=== PATIENT | male | born 1950 | race Caucasian/White ===

== ENCOUNTER → 2016-08-27 | Outpatient (CLI) | payer OTHER ==
[~2016-08-27] MED LIST: CIPRO250 M1 PO; CIPROFLOXACIN500 M1 PO; COUMADIN 5 MG TA5 M1 PO; FLOMAX PO; JANUVIA100 MG PO; MULTIVITAMIN; PRILOSEC 20 MG20 MG PO; VENTOLIN INHALER INH
== END ==
LOC: HYPER 07:37
DX: E11.622 Type 2 diabetes mellitus with other skin ulcer (principal); I87.2 Venous insufficiency (chronic) (peripheral); L97.821 Non-pressure chronic ulcer of other part of left lower leg limited to breakdown of skin; R60.0 Localized edema; I70.249 Atherosclerosis of native arteries of left leg with ulceration of unspecified site; C44.729 Squamous cell carcinoma of skin of left lower limb, including hip; F17.200 Nicotine dependence, unspecified, uncomplicated; Z85.46 Personal history of malignant neoplasm of prostate

== ENCOUNTER 2016-08-28 07:55 | Inpatient (IN) | payer OTHER ==
[~2016-08-28] VITALS: Ht 172.7 cm; Wt 85.3 kg
--- NOTE | ~2016-08-28 | HC ---
[facility] [place] [address] CONSULTATION Name: KRISTIESHUBHAM Mustafa Room #: 310-P ADM IN M.R.#: [id number] Admission: 08/28/16 Attend Phys: Tutu Oliver MD Discharge: Date of : 50 Report #: [id number] THIS REPORT FOR: //name// CC: FAM unknown Tutu Oliver DATE OF SERVICE: 08/28/2016 REASON FOR CONSULTATION: Fluid overload. HISTORY OF PRESENT ILLNESS: This is a 65-year-old male patient who denies any prior history of cardiac issues. He was admitted through the Emergency Room after being seen in urgent care for increasing shortness of breath. The patient stated he has been having progressive symptoms over the last numerous months, but over the last several weeks has become more prominent. Of interest though, he states that he is able to lay down flat with 1 pillow on his side and breathe better than he does sitting on his recliner. He is not having any chest pain, pressure, tightness or heaviness. He reports himself to be an alcoholic, but had not drank for 2 weeks and he is a long time, greater than 1 to 1-1/2 packs a day smoker that he started cutting down 2 weeks ago because of progressive shortness of breath. The patient denies any orthopnea. He denies any fever, chills, night sweats, pressure tightness, heaviness or fullness. He was sent to the Emergency Room and had a proBNP of 9376, although we do not know his baseline. Troponins were negative in the Emergency Room. CTA failed to demonstrate acute pulmonary embolus but did show evidence of emphysematous changes. PAST MEDICAL HISTORY: Significant for: 1. Polysubstance dependency with alcohol and tobacco. 2. Hypertension. 3. Diabetes mellitus. 4. Dyslipidemia. 5. Chronic kidney disease without any specifically identified stage. ALLERGIES: No known drug allergies. PAST SURGICAL HISTORY: Significant for: 1. Tonsillectomy and adenoidectomy. 2. Oral surgery. 3. ____ repair. MEDICATIONS: At home are warfarin, Januvia, Prilosec and Flomax. ELECTROCARDIOGRAM: Demonstrates normal sinus rhythm with ectopic. Monitor demonstrates episodes of atrial fibrillation. Right bundle branch block, [facility] [address] [place] [address] CONSULTATION Name: SHUBHAM FLOWERS Room #: 310-P [facility] IN ..#: [id number] Admission: 08/28/16 Attend Phys: Tutu Oliver MD Discharge: Date of : 50 Report #: [id number]-T wave changes. LABORATORY DATA: Demonstrates a BUN and creatinine of 16 and 1.3. Potassium 3.6. H and H is 17.3 and 52.0 with a platelet count of 239,000. RADIOLOGIC: Demonstrates a right lung infiltrate concerning for pneumonia. REVIEW OF SYSTEMS: Except for symptoms previously mentioned and those commensurate with comorbid state, the 10-point review of systems is negative. PHYSICAL EXAMINATION: GENERAL: Well-developed, well-nourished male, resting comfortably in no distress. VITAL SIGNS: Noted and reviewed in the chart. HEENT: Normocephalic, atraumatic. Pupils are equal, round, reactive to light and accommodation. Extraocular muscles are intact. Sclerae and conjunctivae are anicteric. NECK: JVD is normal. Carotid upstrokes are bilaterally symmetrical. No bruits are heard. No thyromegaly. No lymphadenopathy. LUNGS: Clear to auscultation. No wheezes, rhonchi or crackles. No CVA tenderness. Lungs demonstrate some decreased tidal volume, but no overt crackles are noted. CARDIAC: Demonstrates a regular rhythm with occasional ectopics, first and second heart sounds are preserved though. No ventricular or atrial gallops, no rubs noted. No murmurs. No lifts or heaves, PMI normal. ABDOMEN: Soft, nontender, nondistended. Normal bowel sounds. EXTREMITIES: Without cyanosis, clubbing or edema. Distal pulses are intact. DTR symmetrical. NEUROLOGIC: Cranial nerves 2-12 are grossly normal and symmetrical. PSYCHIATRIC: Alert, oriented with normal affect. SKIN: Warm and dry. IMPRESSION: 1. Dyspnea with respiratory failure, hypoxemia. His story is just not consistent with progressive congestive heart failure. Yes, he is total body fluid up, but I wonder if that has to do with other factors also. He was given diuretics and I will see how he diuresis with this. If he diuresis and his breathing improves, then clearly fluid overload is the cause. Elevated BNP may be secondary to his renal disease, elevated pulmonary pressures that are likely present with his emphysematous changes, etc. We will monitor for now. 2. Tachycardia, may be atrial fibrillation with a rapid rate secondary to above. We will monitor it more closely on an event monitor. We will get a 2D echo Doppler to rule out any structural abnormalities. 3. Hypertension - seems to be doing fairly well at home. I am going to have him check it here, so we can determine exactly what he runs and what we need to do [facility] [address] [place] [address] CONSULTATION Name: SHUBHAM FLOWERS Room #: 310-P ADM IN M.R.#: [id number] Admission: 08/28/16 Attend Phys: Tutu Oliver MD Discharge: Date of : 50 Report #: [id number] as an outpatient. 4. <ELECTRONICALLY SIGNED> By: Jayme Foster MD 08/29/16 2219 1814 11 Jayme Foster MD /nt
--- NOTE | ~2016-08-28 | EKG ---
[place] [address] [facility] [place] [address] ELECTROCARDIOGRAM REPORT Name: SHUBHAM FLOWERS Room #: 310-P ADM IN M.R.#: [id number] Admission: 08/28/16 Attend Phys: Tutu Oliver MD Discharge: Date of : 50 Report #: [id number] THIS REPORT FOR: //name// [facility] ED Test Date: 2016-08-28 Test Time: 08:20:20 Pat Name: SHUBHAM FLOWERS Department: Room: 310 Gender: M Instrumental Music Teacher: ovidio : 1950 Requested By: Bruce Greenfield Order Number: [id number] MD: Natalio Lopez Measurements Intervals Belle Rate: 121 P: 146 WA: 165 QRS: 146 QRSD: 130 T: -14 QT: 360 QTc: 511 Interpretive Statements Sinus tachycardia with frequent APC's Right bundle branch block Abnormal lateral Q waves Compared to ECG 08/02/2010 07:42:25 atrial premature complexes are now present Low-voltage in the limb leads Electronically Signed On 08-29-2016 7:10:14 CDT by Natalio Lopez [email or web address] <ELECTRONICALLY SIGNED> By: Natalio Lopez MD, [facility] 08/29/16 0710 9 9 Natalio Lopez MD, [facility] /EPI
--- NOTE | ~2016-08-28 | HC ---
[facility] [place] [address] CONSULTATION Name: SHUBHAM FLOWERS Room #: 310-P ADM IN M.R.#: [id number] Admission: 08/28/16 Attend Phys: Tutu Oliver MD Discharge: Date of : 50 Report #: [id number] THIS REPORT FOR: //name// CC: FAM unknown Tutu Oliver DATE OF SERVICE: 08/29/2016 HISTORY OF PRESENT ILLNESS: This is a 65-year-old male patient who presented to the emergency department from urgent care for worsening shortness of breath. He was noted to have ulceration on his left lower extremity as well as a small area of ulceration or possible traumatic wound to the right lower quadrant of abdomen as seen with regard to ongoing wound care. PAST MEDICAL HISTORY: Positive for history of respiratory failure with hypoxia, history of diabetes, hypertension, hypercholesterolemia, acute renal failure, history of tobacco abuse. CURRENT MEDICATIONS: Insulin, Lasix, vancomycin, enoxaparin, methylprednisolone, pantoprazole, carvedilol, ipratropium, albuterol, p.r.n. sublingual nitroglycerin. ALLERGIES: None. PAST MEDICAL HISTORY: Congestive heart failure. SOCIAL HISTORY: Positive for tobacco abuse and some history of alcohol use. FAMILY HISTORY: Noncontributory. REVIEW OF SYSTEMS: CONSTITUTIONAL: No fever, chills, weight loss. NEUROLOGICAL: The patient has focal weakness. ENT: The patient has . CARDIOVASCULAR: The patient denies chest pain or palpitations at rest. PULMONARY: The patient does have minor shortness of breath with exertion. ORTHOPEDIC: The patient complains of some mild swelling and discomfort to his lower extremities. Other systems are negative at this time. PHYSICAL EXAMINATION: VITAL SIGNS: At this time include temperature 97.6, pulse 85, respiration of 24, blood pressure 120/82. GENERAL: This is a chronically ill-appearing male. The patient appears in minimal distress. HEENT: Normocephalic. LUNGS: Diminished. [address] [address] CONSULTATION Name: SHUBHAM FLOWERS Room #: 310-P [facility] IN ..#: [id number] Admission: 08/28/16 Attend Phys: Tutu Oliver MD Discharge: Date of : 50 Report #: [id number] HEART: Regular rhythm. ABDOMEN: Soft, slightly distended. EXTREMITIES: There is a small ulceration covered with either crust or very small eschar in the right lower quadrant, it is not infected or inflamed. There is no separation or tunneling or undermining noted at this time. Lower extremities demonstrate some edema present. There is an ulceration on the left lower pretibial region with some exudate with equal mixture of exudate and granulation tissue. It does not appear overtly infected. IMPRESSION: 1. Ulceration to the left lower extremity, possibly traumatic in origin, complicated by lower extremity edema and/or venous insufficiency. 2. Congestive heart failure. 3. History of alcohol and tobacco use. RECOMMENDATION: At this point in time, we will recommend topical Maxorb AG with compressive consumer loan specialist to help control edema. I think the area on his right lower quadrant of his abdominal wall can be left open to air and I suspect that the crust and/or eschar will flake away in time. No debridement required at this time. I do appreciate being asked to see the patient in consultation. <ELECTRONICALLY SIGNED> By: Wilian Kim MD 08/30/16 0920 1601 [id number] Wilian Kim MD /nt
--- NOTE | ~2016-08-28 | 2DMMODE ---
[facility] [address] [place] [address] 2 D/M-MODE ECHOCARDIOGRAM Name: SHUBHAM FLOWERS Room #: 310-P ADM IN M.R.#: [id number] Admission: 08/28/16 Attend Phys: Ramsey Thomas Discharge: Date of : 50 Date of Service: 08/28/16 1624 Report #: [id number] THIS REPORT FOR: //name// APPROVED REPORT Study performed: 08/28/2016 12:43:49 EXAM: Comprehensive 2D, Doppler, and color-flow Echocardiogram Patient Location: Bedside Room #: 310 Status: routine Other Information Study Quality: Fair Indications Congestive Heart Failure Dyspnea Hx HPN, Renal Failure 2D Dimensions RVDd: 42.71 mm LVEF(%): 49.72 (>50%) IVSd: 9.19 (7-11mm) LVOT Diam: 26.43 (18-24mm) LVDd: 45.63 mm PWd: 9.24 (7-11mm) Ascending Ao: 31.49 (22-36mm) LVDs: 34.18 (25-40mm) Aortic Root: 36.01 mm Cash's LVEF: 49.72 % Volumes Left Atrial Volume (Systole) Single Plane 4CH: 72.14 mL LA ESV Index: 72.00 mL/m2 Aortic Valve AoV Peak Shawn.: 0.92 m/s AO Peak Gr.: 3.39 mmHg LVOT Max P.36 mmHg LVOT Max V: 0.77 m/s LINDA Vmax: 4.58 cm2 Mitral Valve MV E Max Shawn.: 0.95 m/s IVRT: 73.82 ms Pulmonary Valve [facility] [address] [address] 2 D/M-MODE ECHOCARDIOGRAM Name: SHUBHAM FLOWERS Room #: 310-P [facility] IN [facility].#: [id number] Admission: 08/28/16 Attend Phys: Ramsey Thomas Discharge: Date of : 50 Date of Service: 08/28/16 1624 Report #: [id number] PV Peak Shawn.: 0.78 m/s PV Peak Gr.: 2.42 mmHg Tricuspid Valve TR Peak Shawn.: 3.69 m/s RAP Estimate: 5.00 mmHg TR Peak Gr.: 44.00 mmHg RVSP: 49.00 mmHg Left Ventricle The left ventricle is normal size. There is normal LV segmental wall motion. There is normal left ventricular wall thickness. The left ventricular systolic function is normal. The left ventricular ejection fraction is within the normal range. LVEF is 50%. This study is not technically sufficient to allow evaluation of the LV diastolic function. Right Ventricle The right ventricle is normal size. Right ventricle is hypokinetic. Atria Left atrium is dilated. The atrial septum is aneurysmal. Right atrium is dilated. Aortic Valve Aortic valve leaflets are mildly thickened. Trace aortic regurgitation. There is no aortic valvular stenosis. Mitral Valve The mitral valve is normal in structure. Trace mitral regurgitation. No evidence of mitral valve stenosis. Tricuspid Valve The tricuspid valve is normal in structure. Mild to moderate tricuspid regurgitation. Pulmonic Valve The pulmonary valve is normal in structure. There is no pulmonic valvular regurgitation. Great Vessels The aortic root is normal in size. The ascending aorta is normal in size. IVC is normal in size and collapses >50% with inspiration. Pericardium There is no pericardial effusion. [facility] [address] [place] [address] 2 D/M-MODE ECHOCARDIOGRAM Name: SHUBHAM FLOWERS Room #: 310-P [facility] IN ..#: [id number] Admission: 08/28/16 Attend Phys: Ramsey Thomas Discharge: Date of : 50 Date of Service: 08/28/16 1624 Report #: [id number] <Conclusion> The left ventricle is normal size. LVEF is 50%. Left atrium is dilated. The atrial septum is aneurysmal. Right atrium is dilated. Aortic valve leaflets are mildly thickened. Trace aortic regurgitation. The mitral valve is normal in structure. Trace mitral regurgitation. The tricuspid valve is normal in structure. Mild to moderate tricuspid regurgitation. The pulmonary valve is normal in structure. <ELECTRONICALLY SIGNED> By: Jayme Foster MD 08/28/16 1624 1624 162 Jayme Foster MD /INF
[2016-08-28 07:57] VITALS: BP 138/94
[2016-08-28 08:22] LABS: ABSOLUTE NEUTROPHILS 5.6 thou/uL (1.4-8.2); BASOPHILS 0.6 % (0.0-2.0); EOSINOPHILS 0.1 % (0.0-3.0); HEMOGLOBIN 17.3 gm/dL (14.0-18.0); LYMPHOCYTES 14.3 % (24.0-44.0); MCH 31.4 pg (26.0-34.0); MCHC 33.3 g/dL (28.0-37.0); MCV 94.5 fL (80.0-100.0); MONOCYTES 6.9 % (1.0-8.0); PLATELET COUNT 239 thou/uL (150-400); POLYS 78.1 % (36.0-66.0); RBC 5.51 mil/uL (4.50-6.00); RDW 16.4 % (10.5-14.5); WBC 7.2 thou/uL (4.0-11.0)
[2016-08-28 08:24] LABS: MANUAL DIFF NO
[2016-08-28 08:31] LABS: CALCIUM 9.2 mg/dL (8.5-10.1); CREATININE 1.3 mg/dL (0.7-1.3); POTASSIUM 3.6 mmol/L (3.5-5.1)
[2016-08-28 08:43] LABS: TROPONIN-I 0.04 ng/mL (<0.04-0.07)
[2016-08-28 11:30] VITALS: BP 130/86
[2016-08-28 11:38] LABS: INR 1.1; PROTIME 11.6 Seconds (9.3-11.4)
[2016-08-28 12:34] VITALS: BP 128/76
[2016-08-28 12:50] LABS: FOLIC ACID 11.2 ng/mL (8.6-58.9); TSH 3.362 uIU/mL (0.358-3.740)
[2016-08-28 17:20] VITALS: BP 103/72
[2016-08-28 19:30] VITALS: BP 86/59
[2016-08-29 03:00] VITALS: BP 102/66
[2016-08-29 06:40] LABS: HEMATOCRIT 47.7 % (42.0-52.0); HEMOGLOBIN 15.4 gm/dL (14.0-18.0); MCH 30.9 pg (26.0-34.0); MCHC 32.3 g/dL (28.0-37.0); MCV 95.8 fL (80.0-100.0); RBC 4.98 mil/uL (4.50-6.00); RDW 16.6 % (10.5-14.5); WBC 5.6 thou/uL (4.0-11.0)
[2016-08-29 07:04] LABS: ALBUMIN 2.3 g/dL (3.4-5.0); CALCIUM 7.9 mg/dL (8.5-10.1); CREATININE 1.5 mg/dL (0.7-1.3); POTASSIUM 4.8 mmol/L (3.5-5.1); TC:HDL 2.9 Ratio (Not establshd); TOTAL BILIRUBIN 0.5 mg/dL (<0.1-1.0); TOTAL PROTEIN 6.1 g/dL (6.4-8.2)
[2016-08-29 08:10] VITALS: BP 103/69
[2016-08-29 12:37] VITALS: BP 120/82
[2016-08-29 16:04] VITALS: BP 105/71
[2016-08-29 20:00] VITALS: BP 99/70
[2016-08-30 03:18] LABS: GLYCOHEMOGLOBIN (HGB A1C) 8.7 % (4.8-5.6)
[2016-08-30 04:00] VITALS: BP 99/69
[2016-08-30 04:13] LABS: ABSOLUTE NEUTROPHILS 8.6 thou/uL (1.4-8.2); BASOPHILS 0.6 % (0.0-2.0); HEMOGLOBIN 15.5 gm/dL (14.0-18.0); LYMPHOCYTES 8.4 % (24.0-44.0); MCH 31.3 pg (26.0-34.0); MCHC 33.1 g/dL (28.0-37.0); MCV 94.7 fL (80.0-100.0); MONOCYTES 3.3 % (1.0-8.0); PLATELET COUNT 262 thou/uL (150-400); POLYS 87.7 % (36.0-66.0); RBC 4.96 mil/uL (4.50-6.00); RDW 16.2 % (10.5-14.5); WBC 9.8 thou/uL (4.0-11.0)
[2016-08-30 04:20] LABS: CALCIUM 7.8 mg/dL (8.5-10.1); CREATININE 1.8 mg/dL (0.7-1.3); MAGNESIUM 1.7 mg/dL (1.8-2.4); POTASSIUM 5.1 mmol/L (3.5-5.1)
[2016-08-30 04:43] LABS: MANUAL DIFF NO
[2016-08-30 08:21] VITALS: BP 114/71
[2016-08-30] MEDS ORDERED: PREDNISONE 10 M10 MG PO (11:26)
[2016-08-30] MEDS ORDERED: LEVAQUIN 500 M500 M2 PO (11:26)
[2016-08-30] MEDS ORDERED: DUONEB 2.5-0.5 M3 ML INH (11:26)
[2016-08-30] MEDS ORDERED: COREG3.125 MG PO (11:26)
[2016-08-30] MEDS ORDERED: GLIPIZIDE XL2.5 MG PO (11:26)
[2016-08-30] MEDS ORDERED: VIBRAMYCIN 100100 M2 PO (11:26)
[2016-08-30 16:21] VITALS: BP 104/73
[2016-08-30 19:15] VITALS: BP 126/78
[2016-08-31 03:53] LABS: CALCIUM 7.3 mg/dL (8.5-10.1); CREATININE 1.6 mg/dL (0.7-1.3); POTASSIUM 4.8 mmol/L (3.5-5.1)
[2016-08-31 04:09] VITALS: BP 125/89
[2016-08-31 07:49] VITALS: BP 143/91
[2016-08-31 14:16] VITALS: BP 143/91
[2016-08-31 14:45] VITALS: BP 143/91
== END 2016-08-31 15:30 | disposition home or self-care (01) | DRG 177 ==
LOC: ER 07:55 → EROBS 10:41 → 3N 10:41
PROVIDERS: Emergency Medicine; Internal Medicine; Nurse Practitioner
DX: J69.0 Pneumonitis due to inhalation of food and vomit (principal); J96.01 Acute respiratory failure with hypoxia; F19.20 Other psychoactive substance dependence, uncomplicated; J44.1 Chronic obstructive pulmonary disease with (acute) exacerbation; L97.929 Non-pressure chronic ulcer of unspecified part of left lower leg with unspecified severity; L03.90 Cellulitis, unspecified; J44.0 Chronic obstructive pulmonary disease with (acute) lower respiratory infection; I13.0 Hypertensive heart and chronic kidney disease with heart failure and stage 1 through stage 4 chronic kidney disease, or unspecified chronic kidney disease; E78.5 Hyperlipidemia, unspecified; R00.0 Tachycardia, unspecified; I48.91 Unspecified atrial fibrillation; E78.00 Pure hypercholesterolemia, unspecified; F17.210 Nicotine dependence, cigarettes, uncomplicated; F10.21 Alcohol dependence, in remission; E11.51 Type 2 diabetes mellitus with diabetic peripheral angiopathy without gangrene; I87.8 Other specified disorders of veins; N28.9 Disorder of kidney and ureter, unspecified; E11.22 Type 2 diabetes mellitus with diabetic chronic kidney disease; N18.9 Chronic kidney disease, unspecified; I50.9 Heart failure, unspecified
CPT/HCPCS: 10096

== ENCOUNTER → 2016-09-05 | Outpatient (CLI) | payer OTHER ==
[~2016-09-05] MED LIST changes: +COREG3.125 MG PO; +DUONEB 2.5-0.5 M3 ML INH; +GLIPIZIDE XL2.5 MG PO; +LEVAQUIN 500 M500 M2 PO; +PREDNISONE 10 M10 MG PO; +VIBRAMYCIN 100100 M2 PO
== END ==
LOC: HYPER 07:13
DX: E11.622 Type 2 diabetes mellitus with other skin ulcer (principal); I87.2 Venous insufficiency (chronic) (peripheral); L97.821 Non-pressure chronic ulcer of other part of left lower leg limited to breakdown of skin; R60.0 Localized edema; I70.248 Atherosclerosis of native arteries of left leg with ulceration of other part of lower leg; C44.729 Squamous cell carcinoma of skin of left lower limb, including hip; F17.200 Nicotine dependence, unspecified, uncomplicated; F12.90 Cannabis use, unspecified, uncomplicated; Z85.46 Personal history of malignant neoplasm of prostate

== ENCOUNTER → 2016-09-17 | Outpatient (CLI) | payer OTHER | LOC: HYPER 07:05 | DX: E11.622 Type 2 diabetes mellitus with other skin ulcer (principal); L97.821 Non-pressure chronic ulcer of other part of left lower leg limited to breakdown of skin; I70.248 Atherosclerosis of native arteries of left leg with ulceration of other part of lower leg; I87.2 Venous insufficiency (chronic) (peripheral); Z85.828 Personal history of other malignant neoplasm of skin; Z85.46 Personal history of malignant neoplasm of prostate; F17.200 Nicotine dependence, unspecified, uncomplicated ==

== ENCOUNTER → 2016-09-19 | Outpatient (CLI) | payer OTHER | LOC: RAD 14:56 | DX: R06.00 Dyspnea, unspecified (principal); R06.02 Shortness of breath ==

== ENCOUNTER → 2016-09-27 | Outpatient (CLI) | payer OTHER | LOC: RAD 14:01 | DX: J44.9 Chronic obstructive pulmonary disease, unspecified (principal); J18.9 Pneumonia, unspecified organism ==

== ENCOUNTER → 2016-10-08 | Outpatient (CLI) | payer OTHER | LOC: HYPER 07:14 | DX: E11.622 Type 2 diabetes mellitus with other skin ulcer (principal); L97.821 Non-pressure chronic ulcer of other part of left lower leg limited to breakdown of skin; I70.248 Atherosclerosis of native arteries of left leg with ulceration of other part of lower leg; I87.2 Venous insufficiency (chronic) (peripheral); C44.729 Squamous cell carcinoma of skin of left lower limb, including hip; F17.200 Nicotine dependence, unspecified, uncomplicated; Z85.46 Personal history of malignant neoplasm of prostate ==

== ENCOUNTER → 2016-10-15 | Outpatient (CLI) | payer OTHER | LOC: HYPER 06:56 | DX: E11.622 Type 2 diabetes mellitus with other skin ulcer (principal); L97.821 Non-pressure chronic ulcer of other part of left lower leg limited to breakdown of skin; I70.248 Atherosclerosis of native arteries of left leg with ulceration of other part of lower leg; I87.2 Venous insufficiency (chronic) (peripheral); C44.729 Squamous cell carcinoma of skin of left lower limb, including hip; R26.9 Unspecified abnormalities of gait and mobility; F17.200 Nicotine dependence, unspecified, uncomplicated; F12.90 Cannabis use, unspecified, uncomplicated; Z85.46 Personal history of malignant neoplasm of prostate ==